=== PATIENT | male | born 1980 | race Caucasian/White ===

== ENCOUNTER 2018-05-14 13:03 | Emergency (ER) | payer BC ==
[~2018-05-14] VITALS: Ht 193 cm; Wt 86.2 kg
[2018-05-14] MEDS ORDERED: NOHOMEMEDICATIONS (13:15)
[2018-05-14] MEDS ORDERED: KEFLEX500 M1 PO (13:55)
[2018-05-14 14:42] VITALS: BP 114/71
== END 2018-05-14 14:47 | disposition home or self-care (01) ==
LOC: ER 13:03
DX: S61.217A Laceration without foreign body of left little finger without damage to nail, initial encounter (principal); W26.8XXA Contact with other sharp object(s), not elsewhere classified, initial encounter; Y93.89 Activity, other specified; Y92.89 Other specified places as the place of occurrence of the external cause; Y99.8 Other external cause status